=== PATIENT | male | born 1960 | race Caucasian/White ===

== ENCOUNTER 2021-05-21 11:49 | Emergency (ER) | payer MEDICARE, OTHER ==
[~2021-05-21] VITALS: Ht 182.9 cm; Wt 125.0 kg
[2021-05-21] MEDS ORDERED: LISINOPRIL10 MG PO (13:12)
[2021-05-21] MEDS ORDERED: PREDNISONE5 MG PO (13:13)
[2021-05-21 13:21] LABS: HEMATOCRIT 47.3 % (39.0-50.0); HEMOGLOBIN 14.8 g/dl (14.0-18.0); IMMATURE GRANULOCYTES 0.3 % (0.0-5.0); MEAN CELL VOLUME 86.9 fL CALC (80.0-100.0); MEAN CORPUSCULAR HGB 27.2 pG CALC (26.0-32.0); MEAN CORPUSCULAR HGB CONC 31.3 g/dL CAL (32.0-36.0); NEUT# 6.16 thou/uL (1.82-7.42); RED BLOOD COUNT 5.44 mill/uL (4.70-6.10); RED CELL DISTRI WIDTH 14.9 % (11.5-15.5)
[2021-05-21] MEDS ORDERED: NAPROXEN500 MG PO (13:30)
[2021-05-21] MEDS ORDERED: BACTRIM DS1 TAB PO (13:30)
[2021-05-21 13:42] LABS: ALBUMIN 4.1 g/dL (3.2-5.0); ALKALINE PHOSPHATASE 141 u/l (38-126); ANION GAP 12 (6-22 (CALC)); BILIRUBIN, TOTAL 0.6 mg/dL (0.0-1.4); BUN 15 mg/dL (8-23); BUN/CREATININE RATIO 19 (12-20 (CALC)); CARBON DIOXIDE 25 mmol/l (22-30); CHLORIDE 105 mmol/l (95-108); CREATININE 0.8 mg/dL (0.7-1.3); GFR > 60 ML/MIN (>=60 (CALC)); GFR FOR AFR.AMER. > 60 ML/MIN (>=60 (CALC)); SGOT/AST 22 u/l (19-48); SODIUM 137 mmol/l (137-146); TOTAL PROTEIN 7.2 g/dL (6.3-8.2)
[2021-05-21 13:57] VITALS: BP 186/94
[2021-05-21] MEDS ORDERED: ULTRAM50 M1 PO (14:02)
== END 2021-05-21 14:12 | disposition home or self-care (01) ==
LOC: ED 11:49
PROVIDERS: Emergency Medicine
DX: L03.113 Cellulitis of right upper limb (principal); I10 Essential (primary) hypertension; M35.3 Polymyalgia rheumatica

== ENCOUNTER 2023-05-07 15:40 | Emergency (ER) | payer MEDICARE ==
[~2023-05-07] VITALS: Ht 185.4 cm; Wt 136.1 kg
[~2023-05-07 15:40] MED LIST: BACTRIM DS1 TAB PO; LISINOPRIL10 MG PO; NAPROXEN500 MG PO; PREDNISONE5 MG PO; ULTRAM50 M1 PO
[2023-05-07] MEDS ORDERED: BACTRIM DS1 TAB PO (17:27)
[2023-05-07 17:47] VITALS: BP 133/96
[2023-05-07 17:52] VITALS: BP 133/96
[2023-05-07] MEDS ORDERED: AMLODIPINE BESYL5 MG PO (17:56)
[2023-05-09] MEDS ORDERED: PREDNISONE50 MG PO (07:59)
[2023-05-09] MEDS ORDERED: CEPHALEXIN500 M1 PO (07:59)
[2023-05-09] MEDS ORDERED: ALL DAY10 MG PO (07:59)
== END 2023-05-07 17:58 | disposition home or self-care (01) ==
LOC: ED 15:40
DX: L03.314 Cellulitis of groin (principal); I10 Essential (primary) hypertension

== ENCOUNTER 2024-06-01 11:22 | Emergency (ER) | payer MEDICARE ==
[~2024-06-01] VITALS: Ht 185.4 cm; Wt 127.0 kg
[~2024-06-01 11:22] MED LIST changes: +ALL DAY10 MG PO; +AMLODIPINE BESYL5 MG PO; +CEPHALEXIN500 M1 PO; +PREDNISONE50 MG PO
[2024-06-01 11:27] VITALS: BP 148/94
[2024-06-01 11:30] VITALS: BP 131/90
[2024-06-01 11:47] VITALS: BP 109/66
[2024-06-01 12:01] VITALS: BP 141/88
[2024-06-01] MEDS ORDERED: CEPHALEXIN500 M1 PO (12:02)
[2024-06-01] MEDS ORDERED: DOXYCYCLINE100 MG PO (12:02)
[2024-06-01 12:24] VITALS: BP 141/88
== END 2024-06-01 12:30 | disposition home or self-care (01) ==
LOC: ED 11:22
DX: L03.115 Cellulitis of right lower limb (principal); I10 Essential (primary) hypertension; M35.3 Polymyalgia rheumatica